=== PATIENT | female | born 1985 | race American Indian/Alaskan Native ===

== ENCOUNTER 2017-06-26 19:36 | Emergency (ER) | payer SELFPAY ==
[2017-06-26 20:10] VITALS: BP 117/64
[2017-06-26] MEDS ORDERED: TYLENOL PO ONE (21:50)
--- NOTE | 2017-06-26 21:54 | Emergency Department Report ---
ED ENT HPI - General Chief complaint: Dental/Oral Stated complaint: TOOTHACHE Time Seen by Provider: 06/26/17 21:25 Source: patient Mode of arrival: Ambulatory Limitations: No Limitations - History of Present Illness Initial comments: This is a 32-year-old female about 6 months nontoxic, well nourished in appearance, no acute signs of distress presents to the ED with c/o of right lower toothache 2 days. Patient denies following up with a dentist. Patient denies any radiation of pain. Patient describes toothache as aching level of 8 out of 10. Patient denies any facial swelling. Patient denies any numbness, tingling, fever, chills, headache, stiff neck, abdominal pain, chest pain, shortness of breath. Patient denies any drug allergies or significant past medical history. MD complaint: tooth pain -: days(s) (2) Location: tooth # (17) 1 - pain Severity: mild Severity scale (0 -10): 8 Quality: aching Consistency: constant Improves with: none Worsens with: none Associated Symptoms: gum swelling, toothache. denies: fever, cough, pain with swallowing, sore throat, tinnitus, hearing loss, discharge from ear, rhinorrhea - Related Data Previous Rx's Medication Instructions Recorded Last Taken Type Acetaminophen/Codeine [Tylenol #3] 1 tab PO Q6H PRN #20 tab 10/26/13 Unknown Rx Misoprostol [Cytotec] 400 mcg PO Q4HR #6 tablet 10/26/13 Unknown Rx Pnv95/Ferrous Fumarate/FA 1 each PO QDAY #90 tablet 10/26/13 Unknown Rx [ Vitamins] Acetaminophen 500 mg PO Q8H PRN #30 tablet 06/26/17 Unknown Rx Amoxicillin/K Clav Tab [Augmentin 1 tab PO Q12HR #20 tab 06/26/17 Unknown Rx 875 mg] Allergies Allergy/AdvReac Type Severity Reaction Status Date / Time No Known Allergies Allergy Verified 05/12/13 15:11 ED Dental HPI - General Chief complaint: Dental/Oral Stated complaint: TOOTHACHE Time Seen by Provider: 06/26/17 21:25 Source: patient Mode of arrival: Ambulatory Limitations: No Limitations - Related Data Previous Rx's Medication Instructions Recorded Last Taken Type Acetaminophen/Codeine [Tylenol #3] 1 tab PO Q6H PRN #20 tab 10/26/13 Unknown Rx Misoprostol [Cytotec] 400 mcg PO Q4HR #6 tablet 10/26/13 Unknown Rx Pnv95/Ferrous Fumarate/FA 1 each PO QDAY #90 tablet 10/26/13 Unknown Rx [ Vitamins] Acetaminophen 500 mg PO Q8H PRN #30 tablet 06/26/17 Unknown Rx Amoxicillin/K Clav Tab [Augmentin 1 tab PO Q12HR #20 tab 06/26/17 Unknown Rx 875 mg] Allergies Allergy/AdvReac Type Severity Reaction Status Date / Time No Known Allergies Allergy Verified 05/12/13 15:11 ED Review of Systems ROS: Stated complaint: TOOTHACHE Other details as noted in HPI Constitutional: denies: chills, fever Eyes: denies: eye pain, eye discharge, vision change ENT: dental pain. denies: ear pain, throat pain Respiratory: denies: cough, shortness of breath, wheezing Cardiovascular: denies: chest pain, palpitations Endocrine: no symptoms reported Gastrointestinal: denies: abdominal pain, nausea, diarrhea Genitourinary: denies: urgency, dysuria, discharge Musculoskeletal: denies: back pain, joint swelling, arthralgia Skin: denies: rash, lesions Neurological: denies: headache, weakness, paresthesias Psychiatric: denies: anxiety, depression Hematological/Lymphatic: denies: easy bleeding, easy bruising ED Past Medical Hx - Past Medical History Previous Medical History?: No Hx Hypertension: No Hx Congestive Heart Failure: No Hx Diabetes: No Hx Deep Vein Thrombosis: No Hx Renal Disease: No Hx Sickle Cell Disease: No Hx Seizures: No Hx Asthma: No Hx COPD: No Hx HIV: No - Surgical History Past Surgical History?: No - Social History Smoking Status: Never Smoker Substance Use Type: None - Medications Home Medications: Home Medications Medication Instructions Recorded Confirmed Last Taken Type Acetaminophen/Codeine [Tylenol #3] 1 tab PO Q6H PRN #20 tab 10/26/13 Unknown Rx Misoprostol [Cytotec] 400 mcg PO Q4HR #6 tablet 10/26/13 Unknown Rx Pnv95/Ferrous Fumarate/FA 1 each PO QDAY #90 tablet 10/26/13 Unknown Rx [ Vitamins] Acetaminophen 500 mg PO Q8H PRN #30 tablet 06/26/17 Unknown Rx Amoxicillin/K Clav Tab [Augmentin 1 tab PO Q12HR #20 tab 06/26/17 Unknown Rx 875 mg] ED Physical Exam - General Limitations: No Limitations General appearance: alert, in no apparent distress - Head Head exam: Present: atraumatic, normocephalic - Eye Eye exam: Present: normal appearance Pupils: Present: normal accommodation - ENT ENT exam: Present: mucous membranes moist, TM's normal bilaterally - Expanded ENT Exam Expanded Ear exam: Present: normal external inspection Mouth exam: Present: normal external inspection, tongue normal. Absent: drooling, trismus, muffled voice, tongue elevation, laceration Teeth exam: Present: dental caries, fractured tooth # (17), dental tenderness # (17), gingival enlargement, other (No facial swelling. ) Throat exam: Positive: normal inspection, other (Uvula midline. No abscess noted. ). Negative: tonsillar erythema, tonsillomegaly, tonsillar exudate, R peritonsillar mass, L peritonsillar mass - Neck Neck exam: Present: normal inspection, full ROM. Absent: lymphadenopathy - Respiratory Respiratory exam: Present: normal lung sounds bilaterally. Absent: respiratory distress, wheezes, rales, rhonchi, stridor - Cardiovascular Cardiovascular Exam: Present: regular rate, normal rhythm, normal heart sounds. Absent: systolic murmur, diastolic murmur, rubs, gallop - GI/Abdominal GI/Abdominal exam: Present: soft, normal bowel sounds - Rectal Rectal exam: Present: deferred - Extremities Exam Extremities exam: Present: normal inspection, full ROM, normal capillary refill - Back Exam Back exam: Present: normal inspection, full ROM - Neurological Exam Neurological exam: Present: alert, oriented X3, normal gait - Psychiatric Psychiatric exam: Present: normal affect, normal mood - Skin Skin exam: Present: warm, dry, intact, normal color. Absent: rash ED Course Vital Signs 06/26/17 06/26/17 20:05 20:11 Temperature 98.5 F 98.5 F Pulse Rate 76 77 Respiratory 18 17 Rate Blood Pressure 117/64 117/64 O2 Sat by Pulse 100 100 Oximetry - Reevaluation(s) Reevaluation #1: 06/26/17 21:54 Patient is speaking in full sentences with no signs of distress noted. Critical care attestation.: If time is entered above; I have spent that time in minutes in the direct care of this critically ill patient, excluding procedure time. ED Disposition Clinical Impression: Dental caries, Gingivitis Disposition: - TO HOME OR SELFCARE Is pt being admited?: No Does the pt Need Aspirin: No Condition: Stable Instructions: Amoxicillin/Clavulanate Potassium (By mouth) Additional Instructions: Follow-up with a dentist doctor in 3-5 days or if symptoms worsen and continue return to emergency room as soon as possible. Prescriptions: Acetaminophen 500 mg PO Q8H PRN #30 tablet PRN Reason: Pain Amoxicillin/K Clav Tab [Augmentin 875 mg] 1 tab PO Q12HR #20 tab Referrals: ALIZE HERNANDEZ MD [Primary Care Provider] - 3-5 Days PRIMARY CARE, [Referring] - 3-5 Days [facility] [Outside] - 3-5 Days Forms: Work/School Release Form(ED)
== END 2017-06-26 22:04 | disposition home or self-care (01) ==
LOC: ED 19:36
DX: K02.9 Dental caries, unspecified (principal); K05.10 Chronic gingivitis, plaque induced
CPT/HCPCS: 99282

== ENCOUNTER 2017-12-26 19:26 | Emergency (ER) | payer MEDICARE | END 2017-12-26 20:50 | disposition left against medical advice (07) | LOC: ED 19:26 | DX: R10.9 Unspecified abdominal pain (principal); R50.9 Fever, unspecified; Z53.21 Procedure and treatment not carried out due to patient leaving prior to being seen by health care provider ==

== ENCOUNTER 2018-09-07 06:31 | Inpatient (IN) | payer MEDICARE ==
[2018-09-07] MEDS ORDERED: SUBLIMAZE IV NR (07:54)
[2018-09-07] MEDS ORDERED: ZOFRAN IV NR (07:54)
[2018-09-07] MEDS ORDERED: LACTATED RINGERS 1,000 ML IV SCH (08:00)
--- NOTE | 2018-09-07 08:11 | History and Physical Report ---
History of Present Illness Date of examination: 09/07/18 Date of admission: 09/07/18 07:40 Chief complaint: Intense labor pains History of present illness: 33yo AA Fe , [place] 09/18/2018 ([place]), 38w 3d, presents in active labor. Pt initiated late care with [facility] [employer] [facility] at 27w5d. Pt [facility]. Closely spaced pregnancies with last 10/14/2017. Known Hx of genital herpes (Valtrex supression started 08/24/18). labs: O positive, Rubella Immune, VDRL non-reactive, HBsAg Negative, HIV Negative, Gc/CL/Trich Negative, GBS Negative Past History Past Medical History: no pertinent history Past Surgical History: no surgical history SEAM RUBBER History: herpes. denies: abnormal PAP smear, chlamydia, gonorrhea, hepatitis B, hepatitis C, HIV, syphilis, trichomonas Family/Genetic History: diabetes Social history: no significant social history, , lives with family. denies: smoking, alcohol abuse, prescription drug abuse, IV drug use - Obstetrical History Expected Date of Delivery: 09/18/18 Actual Gestation: 38 Week(s) 3 Day(s) : 7 Para: 6 Hx # Term Pregnancies: 6 Number of Pregnancies: 0 Spontaneous Abortions: 0 Induced : 0 Number of Living Children: 6 #1 Gender: Male year: 2,[birth year] Birthweight: 2.722 kg Method of Delivery: Vaginal Gestational age at delivery: 39 Complications: none #2 Gender: Male year: 2,009 Birthweight: 3.175 kg Method of Delivery: Vaginal Gestational age at delivery: 40 Complications: none #3 Infant Gender: Male year: 2,013 Birthweight: 2.863 kg Method of Delivery: Vaginal Gestational age at delivery: 40 Complications: none #4 Gender: Female year: 2,015 Birthweight: 3.317 kg Method of Delivery: Vaginal Gestational age at delivery: 40 Complications: none #5 Infant Gender: Male year: 2,017 Birthweight: 2.977 kg Method of Delivery: Vaginal Gestational age at delivery: 40 Complications: none #6 Infant Gender: Male year: 38 Method of Delivery: Vaginal Gestational age at delivery: 38 Complications: none Medications and Allergies Allergies Allergy/AdvReac Type Severity Reaction Status Date / Time No Known Allergies Allergy Verified 09/07/18 07:16 Home Medications Medication Instructions Recorded Confirmed Last Taken Type Pnv95/Ferrous Fumarate/FA 1 each PO QDAY #90 tablet 10/26/13 09/07/18 Unknown Rx [ Vitamins] Active Meds: Active Medications Fentanyl (Sublimaze) 100 mcg IV ONCE NR Stop: 09/07/18 10:00 Lactated Ringer's (Lactated Ringers) 1,000 mls @ 125 mls/hr IV DIRECT RENETTA Last Admin: 09/07/18 07:58 Dose: 125 mls/hr Documented by: Ondansetron HCl (Zofran) 8 mg IV ONCE NR Stop: 09/07/18 10:00 Review of Systems Eyes: normal appearance Cardiovascular: no chest pain, no shortness of breath Respiratory: no shortness of breath Breasts: normal Gastrointestinal: abdominal pain, no nausea, no vomiting, no diarrhea, no constipation Genitourinary: normal appearance, contractions, no vaginal bleeding, no leakage of fluid, no genital sores Integumentary: no rash, no sores, no lesions Neurological: other (Denies) Psychiatric: other (Denies) - Vital Signs Vital signs: Vital Signs Pulse BP 74 132/85 09/07/18 07:02 09/07/18 07:02 Temp Pulse Resp BP Pulse Ox 98.6 F 72 18 119/57 09/07/18 07:11 09/07/18 07:29 09/07/18 07:11 09/07/18 07:29 - Physical Exam Breasts: Positive: normal Cardiovascular: Regular rate, Normal S1, Normal S2, No murmurs Lungs: Positive: Clear to auscultation, Normal air movement Abdomen: Positive: normal appearance, soft, normal bowel sounds. Negative: distention Genitourinary (Female): Positive: normal external genitalia, normal perenium Vulva: both: normal Vagina: Positive: normal moisture Uterus: Positive: enlarged (Gravid) Anus/Rectum: Positive: normal perianal skin Extremities: Positive: normal Deep Tendon Reflex Grade: Normal +2 - Obstetrical FHR: category 1 Uterine Contraction Monitor Mode: External Cervical Dilatation: 6 (Per admitting RN) Cervical Effacement Percentage: 75 station: -2 Uterine Contraction Pattern: Regular Uterine Tone Measurement Phase: Resting Uterine Contraction Intensity: Moderate Results Result Diagrams: 09/07/18 07:30 All other labs normal. Assessment and Plan A: [place] Term IUP Active labor Category 1 tracing GBS neg P: Admit to L&D; Routine labor orders IV pain med/epidural PRN Anticipate
[2018-09-07 08:16] LABS: Basophils # (Auto) 0.1 K/mm3 (0.0-0.1); Basophils % (Auto) 1.1 % (0.0-1.8); Eosinophils # (Auto) 0.1 K/mm3 (0.0-0.4); Eosinophils % (Auto) 0.9 % (0.0-4.3); Hematocrit 34.8 % (30.3-42.9); Hemoglobin 11.9 gm/dl (10.1-14.3); Lymphocytes # (Auto) 2.1 K/mm3 (1.2-5.4); Lymphocytes % (Auto) 25.1 % (13.4-35.0); Mean Corpuscular HGB Conc 34 % (30-34); Mean Corpuscular Volume 88 fl (79-97); Monocytes # (Auto) 0.6 K/mm3 (0.0-0.8); Monocytes % (Auto) 7.1 % (0.0-7.3); Platelet Count 213 K/mm3 (140-440); Red Blood Count 3.97 M/mm3 (3.65-5.03); Red Cell Distribution Width 14.5 % (13.2-15.2)
[2018-09-07] MEDS ORDERED: CYTOTEC ONE (08:20)
[2018-09-07] MEDS ORDERED: PITOCin/NS 20 UNIT/1000ML DRIP 20,000 MILLIUNITS/1,000 ML BAG IV ONE (08:54)
[2018-09-07] MEDS ORDERED: CYTOTEC PR ONE (09:00)
[2018-09-07] MEDS ORDERED: PITOCin/NS 30 UNIT/500ML 30 UNITS/500 ML BAG IV SCH (10:00)
[2018-09-07] MEDS ORDERED: SUBLIMAZE IV ONE (10:36)
--- NOTE | 2018-09-07 11:29 | Procedure Note ---
OB Delivery Note - Delivery Date of Delivery: 09/07/18 (11:06) Surgeon: JUSTO WU (JOE) Estimated blood loss: 200cc - Vaginal Delivery presentation: vertex Delivery position: OA (ISAAC) Intrapartum events: mult.variable deceleratio Delivery induction: none Delivery augmentation: rupture of membranes Route of delivery: (11:06) Delivery placenta: spontaneous (11:10) Delivery cord: 3 umbilical vessels Episiotomy: none Delivery laceration: none Anesthesia: intravenous Delivery comments: viable male infant ISAAC position at 11:06 with NICU present at for recent Fentanyl administration. Vigorous placed [id number] on mothers abdomen. Delayed cord clamping then cut by FOB with my assistance. Cord blood collected per protocol. Spontaneous purdy delivery of intact 3VC placenta at 11:10. FF@U-1, bleeding small. No tears or lacerations noted. and mother left in stable condition in L&D. "Pop" noted with delivery of anterior shoulder (right). Clavicles palpated and feel intact. Baby uses both arms equally. - A at 1 minute: 8 at 5 minutes: 9 Gender: Male (3151 grams, 6lbs 15oz, 19")
[2018-09-07] MEDS ORDERED: PITOCin/NS 20 UNIT/1000ML DRIP 20 UNITS/1,000 ML BAG IV SCH (13:00)
[2018-09-07] MEDS ORDERED: TUCKS PAD TP PRN (14:18)
[2018-09-07] MEDS ORDERED: BENADRYL PO PRN (14:18)
[2018-09-07] MEDS ORDERED: MILK OF MAGNESIA PO PRN (14:18)
[2018-09-07] MEDS ORDERED: PHENERGAN PO PRN (14:18)
[2018-09-07] MEDS ORDERED: DULCOLAX PR PRN (14:18)
[2018-09-07] MEDS ORDERED: SODIUM CHLORIDE FLUSH SYRINGE 10 ML IV NR (14:18)
[2018-09-07] MEDS ORDERED: LANSINOH TP PRN (14:18)
[2018-09-07] MEDS ORDERED: TYLENOL PO PRN (14:18)
[2018-09-07] MEDS ORDERED: ZOFRAN IV PRN (14:18)
[2018-09-07] MEDS: NORCO 5/325 PO PRN ×2 (14:42→22:21)
[2018-09-07] MEDS: IBUPROFEN PO SCH ×2 (18:29→20:18)
[2018-09-08 00:27] LABS: Hematocrit 30.9 % (30.3-42.9); Hemoglobin 10.8 gm/dl (10.1-14.3)
[2018-09-08] MEDS: IBUPROFEN PO SCH ×4 (02:18→20:10)
[2018-09-08] MEDS: NORCO 5/325 PO PRN ×3 (07:13→20:09)
--- NOTE | 2018-09-08 10:33 | Progress Note ---
Assessment and Plan A: day 1 S/P spontaneous vaginal delivery. Anemia secondary to and blood loss. P: Supplement with oral iron. Encouraged ambulation. Anticipate discharge tomorrow if patient continues to do well. Subjective - Subjective Date of service: 09/08/18 Principal diagnosis: day 1 S/P spontaneous vaginal delivery Interval history: day 1 S/P spontaneous vaginal delivery. Doing well. Patient reports small amount of lochia. . Patient is voiding without difficulty, ambulating well, tolerating a regular diet. Patient denies headache, cough, chest pain, shortness of breath, abdominal pain, nausea or vomiting, dizziness, leg pain, or heavy vaginal bleeding. Patient reports: appetite normal, voiding normally, pain well controlled, flatus, ambulating normally, no dizzy ambulation, no nauseated : doing well Objective - Vital Signs Latest vital signs: Vital Signs Temp Pulse Resp BP BP Pulse Ox 09/08/18 08:31 97.6 F 67 18 119/76 100 09/08/18 00:00 98.4 F 66 16 118/79 09/07/18 20:26 108/52 09/07/18 19:30 98.8 F 62 18 108/62 09/07/18 16:16 97.9 F 59 L 18 111/64 99 09/07/18 12:55 97.7 F 66 20 117/72 09/07/18 12:35 69 120/69 09/07/18 11:24 65 86 09/07/18 11:23 62 100 09/07/18 11:18 75 99 09/07/18 11:15 78 87 09/07/18 11:13 69 100 09/07/18 11:08 65 98 09/07/18 11:03 61 100 09/07/18 10:58 67 98 09/07/18 10:53 77 99 09/07/18 10:48 74 99 09/07/18 10:43 65 98 09/07/18 10:38 80 100 09/07/18 10:33 80 100 Intake and Output 09/07/18 09/08/18 09/08/18 23:59 07:59 15:59 Intake Total 240 240 Output Total 400 Balance -160 240 Intake: Oral 240 Intake, Free Water 240 Output: Urine 400 Void 400 Other: Total, Intake Amount 240 Total, Output Amount 400 # Voids Void 1 - Exam Abdomen: Present: normal appearance, soft. Absent: distention, tenderness, guarding, rigidity Uterus: Present: normal, firm, fundal height at umbilicus. Absent: bogginess, tenderness Extremities: Present: normal. Absent: tenderness, edema
[2018-09-08] MEDS: FEOSOL PO SCH (11:21)
[2018-09-09] MEDS: FEOSOL PO SCH ×2 (00:11→10:58)
[2018-09-09] MEDS: NORCO 5/325 PO PRN (08:46)
[2018-09-09] MEDS: IBUPROFEN PO SCH (08:47)
[2018-09-09 09:12] VITALS: BP 114/70
--- NOTE | 2018-09-09 11:40 | Progress Note ---
Assessment and Plan A: day 2 S/P spontaneous vaginal delivery. Anemia secondary to and blood loss. P: Discharge patient home today when baby is able to go. discharge instructions and warning signs discussed with patient. Advised patient to continue taking her vitamins and iron supplements at home. Advised patient to avoid intercourse, lifting and heavy housework, driving. Advised patient to follow up at [facility] [employer] in 6 weeks for exam. Patient voiced understanding of instructions. Subjective - Subjective Date of service: 09/09/18 Principal diagnosis: day 2 S/P spontaneous vaginal delivery Interval history: day 2 S/P spontaneous vaginal delivery. Doing well. Patient reports small amount of lochia. . Patient wants to go home today. Patient is voiding without difficulty, ambulating well, tolerating a regular diet. Patient denies headache, cough, chest pain, shortness of breath, abdominal pain, nausea or vomiting, dizziness, leg pain, or heavy vaginal bleeding. Patient reports: appetite normal, voiding normally, pain well controlled, flatus, ambulating normally, no dizzy ambulation, no nauseated [place]: doing well Objective - Vital Signs Latest vital signs: Vital Signs Temp Pulse Resp BP Pulse Ox 09/09/18 08:47 20 09/09/18 08:46 20 09/09/18 07:48 98.2 F 82 18 114/70 98 09/09/18 01:10 97.6 F 70 20 122/85 100 09/08/18 16:52 97.8 F 69 18 121/82 97 09/08/18 12:56 20 09/08/18 12:55 20 Intake and Output 09/08/18 09/09/18 09/09/18 23:59 07:59 15:59 Intake Total 720 240 Balance 720 240 Intake: Oral 240 Intake, Free Water 720 Other: Total, Intake Amount 240 # Voids Void 1 1 Estimated Blood Loss 200 - Exam Abdomen: Present: normal appearance, soft. Absent: distention, tenderness, guarding, rigidity Uterus: Present: normal, firm, fundal height below umbilicus. Absent: bogginess, tenderness Extremities: Present: normal. Absent: tenderness, edema
--- NOTE | 2018-09-09 11:43 | Discharge Summary ---
Providers - Providers Date of Admission: 09/07/18 07:40 Date of discharge: 09/09/18 Attending physician: CLARA LANE MD None Primary care physician: CLARA LANE MD Hospitalization Reason for admission: active labor Delivery: Episiotomy: none Laceration: none Other procedures: none complications: none Discharge diagnosis: IUP at term delivered baby: male Pertinent studies: Labs Hospital course: Normal hospital course. Condition at discharge: Good Disposition: DC-01 TO HOME OR SELFCARE - Discharge Diagnoses (1) Term delivered Status: Acute (2) Anemia due to blood loss Status: Acute Plan - Provider Discharge Summary Activity: routine, no sex for 6 weeks, no heavy lifting 4 weeks, no strenuous exercise Diet: routine Instructions: routine Additional instructions: Continue taking your vitamin and iron supplement at home. Call your doctor immediately for: * Fever > 100.5 * Heavy vaginal bleeding ( >1 pad per hour) * Severe persistent headache * Shortness of breath * Reddened, hot, painful area to leg or breast - Follow up plan Follow up: CLARA LANE MD [Primary Care Provider] - 6 Weeks
== END 2018-09-09 13:00 | disposition home or self-care (01) | DRG 806 ==
LOC: TRG 06:31 → LD 07:40 → OB 12:57
PROVIDERS: ADMIT Obstetrics & Gynecology; ATTEND Obstetrics & Gynecology
PROC: 10E0XZZ Delivery of Products of Conception, External Approach (ICD-10-PCS; principal; 2018-09-07)
DX: O76 Abnormality in fetal heart rate and rhythm complicating labor and delivery (principal); D62 Acute posthemorrhagic anemia; Z37.0 Single live birth; O99.02 Anemia complicating childbirth; Z3A.38 38 weeks gestation of pregnancy
CPT/HCPCS: 36415; 59025; 85014; 85018; 85025; 86592; 86850; 86900; 86901; G0378; A6250; J2405; J2590; J3010; J7120; Q0169

== ENCOUNTER 2020-01-02 22:15 | Outpatient (CLI) | payer OTHER, MEDICARE ==
[2020-01-02 22:33] VITALS: BP 131/75
== END 2020-01-02 23:45 | disposition home or self-care (01) ==
LOC: TRG 22:15 → APU 22:16 → TRG 23:45
PROVIDERS: ATTEND Obstetrics & Gynecology
DX: O26.893 Other specified pregnancy related conditions, third trimester (principal); M54.9 Dorsalgia, unspecified; Z3A.39 39 weeks gestation of pregnancy
CPT/HCPCS: 59025